=== PATIENT | female | born 1990 | race Two or more races ===

== ENCOUNTER 2017-01-21 19:29 | Emergency (ER) | payer MEDICAID ==
[~2017-01-21] VITALS: Ht 157.5 cm; Wt 77.1 kg
[2017-01-21 20:38] LABS: Urine Bilirubin Negative (Negative); Urine Blood Negative /uL (Negative); Urine Color Yellow (Yellow); Urine Glucose Normal (Normal); Urine Ketone Negative (Negative); Urine Mucus FEW (None Seen); Urine Nitrite Negative (Negative); Urine RBC 1 /hpf (0 - 4); Urine Squamous Epithelial Cell MOD /hpf (<5); Urine Urobilinogen Normal (Negative); Urine pH 5.5 (5.0-8.0)
[2017-01-21 20:43] LABS: Basophils # (auto) 0 uL; Basophils % (auto) 0.4 % (0.0-2.0); Eosinophils # (auto) 0.1 uL; Eosinophils % (auto) 1.3 % (0.0-7.0); Hematocrit 37.8 % (36.0-46.0); Hemoglobin 12.8 g/dL (12.2-16.2); Lymphocytes % (auto) 47.9 % (10.0-50.0); Mean Corpuscular Hemoglobin 31.7 pg (28.0-32.0); Mean Corpuscular Hgb Conc. 33.7 g/dL (32.0-36.0); Mean Platelet Volume 8.2 fL (7.4-10.4); Monocytes # (auto) 0.4 uL; Monocytes % (auto) 6.3 % (0.0-12.0); Neutrophils # (auto) 2.7 uL; Neutrophils % (auto) 44.1 % (37.0-80.0); Platelet Count (auto) 402 10^3/uL (140-450); Red Cell Distribution Width 13.9 % (11.6-16.0); White Blood Cell 6.2 10^3/uL (4.4-10.8)
[2017-01-21 21:12] LABS: Potassium 3.6 mmol/L (3.5-5.1)
[2017-01-21 21:15] LABS: Bilirubin, Total 0.2 mg/dL (0.2-1.0); Total Protein 8.2 g/dL (6.4-8.2)
[2017-01-22 00:36] VITALS: BP 127/87
== END 2017-01-22 00:45 | disposition home or self-care (01) ==
LOC: ER 19:34
DX: N93.8 Other specified abnormal uterine and vaginal bleeding (principal); Z87.891 Personal history of nicotine dependence; Z32.02 Encounter for pregnancy test, result negative
CPT/HCPCS: 36415; 80053; 81001; 81025; 84702; 85025

== ENCOUNTER 2017-10-12 10:19 | Emergency (ER) | payer SELFPAY ==
[~2017-10-12] VITALS: Ht 157.5 cm; Wt 72.6 kg
[2017-10-12 10:59] LABS: Basophils # (auto) 0 uL; Basophils % (auto) 0.8 % (0.0-2.0); Eosinophils # (auto) 0 uL; Eosinophils % (auto) 0.3 % (0.0-7.0); Hematocrit 37.1 % (36.0-46.0); Hemoglobin 12.3 g/dL (12.2-16.2); Lymphocytes # (auto) 2.6 uL; Mean Corpuscular Hemoglobin 30.6 pg (28.0-32.0); Mean Corpuscular Hgb Conc. 33.2 g/dL (32.0-36.0); Mean Corpuscular Volume 92.2 fL (80.0-100.0); Monocytes # (auto) 0.3 uL; Monocytes % (auto) 7.7 % (0.0-12.0); Neutrophils # (auto) 1.1 uL; Neutrophils % (auto) 27.7 % (37.0-80.0); Nucleated Red Blood Cells % 0.1 %; Platelet Count (auto) 300 10^3/uL (140-450); Red Blood Cells 4.03 10^6/uL (4.0-5.20)
[2017-10-12 11:22] LABS: Lymphocytes % (auto) 63.5 % (10.0-50.0)
[2017-10-12 11:40] LABS: BUN/Creatinine Ratio 14.5; Calcium 8.7 mg/dL (8.5-10.1); Potassium 3.9 mmol/L (3.5-5.1)
[2017-10-12 11:44] LABS: Bilirubin, Total 0.2 mg/dL (0.2-1.0)
[2017-10-12 14:43] LABS: Urine Bacteria NONE SEEN /hpf (None Seen); Urine Blood Negative /uL (Negative); Urine Mucus FEW (None Seen); Urine WBC 1 /hpf (0 - 5)
[2017-10-12 14:45] VITALS: BP 94/59
[2017-10-12 15:06] LABS: Amphetamine Screen, Urine NEGATIVE (NEGATIVE); Barbiturate Scree,Urine NEGATIVE (NEGATIVE); Benzodiazephine Screen, Urine NEGATIVE (NEGATIVE); Cannabinoid Screen, Urine NEGATIVE (NEGATIVE); Cocaine Screen, Urine NEGATIVE (NEGATIVE); Opiate Scree,Urine NEGATIVE (NEGATIVE); Phencyclidine Screen, Urine NEGATIVE (NEGATIVE)
== END 2017-10-12 15:15 | disposition home or self-care (01) ==
LOC: ER 10:19
DX: F41.9 Anxiety disorder, unspecified (principal); R10.9 Unspecified abdominal pain
CPT/HCPCS: 36415; 80053; 80307; 81001; 81025; 82150; 83690; 84702; 85025

== ENCOUNTER 2018-11-15 21:34 | Emergency (ER) | payer MEDICAID ==
[~2018-11-15] VITALS: Ht 165.1 cm; Wt 99.8 kg
[2018-11-15] MEDS ORDERED: SODIUM CHLORIDE 0.9% 1,000 ML IVB ONE (22:33)
[2018-11-15 23:12] LABS: Basophils # (auto) 0 uL; Basophils % (auto) 0.9 % (0.0-2.0); Eosinophils # (auto) 0 uL; Hematocrit 39.8 % (36.0-46.0); Lymphocytes # (auto) 2.2 uL; Mean Corpuscular Hemoglobin 31.3 pg (28.0-32.0); Mean Corpuscular Hgb Conc. 32.7 g/dL (32.0-36.0); Mean Corpuscular Volume 95.6 fL (80.0-100.0); Monocytes # (auto) 0.2 uL; Monocytes % (auto) 6.4 % (0.0-12.0); Neutrophils # (auto) 1.3 uL; Neutrophils % (auto) 33.7 % (37.0-80.0); Platelet Count (auto) 290 10^3/uL (140-450); Red Blood Cells 4.16 10^6/uL (4.0-5.20); Red Cell Distribution Width 16.1 % (11.8-14.3); White Blood Cell 3.7 10^3/uL (4.4-10.8)
[2018-11-15] MEDS ORDERED: MULTIPLE VITAMIN 10 ML, MAGNESIUM SULF SDV 50% 8 MEQ in SODIUM CHLORIDE 0.9% 1,000 ML IV ONE (23:15)
[2018-11-15 23:30] VITALS: BP 137/72
[2018-11-15 23:33] LABS: Albumin 3.6 g/dL (3.4-5.0); BUN/Creatinine Ratio 10.6; Calcium 7.8 mg/dL (8.5-10.1); Potassium 3.7 mmol/L (3.5-5.1)
[2018-11-15 23:38] LABS: Bilirubin, Total 0.1 mg/dL (0.2-1.0)
== END 2018-11-16 00:47 | disposition home or self-care (01) ==
LOC: EDBD 21:34 → ER 21:44 → MERGE 21:44 → ER 11-16 00:47
DX: F10.229 Alcohol dependence with intoxication, unspecified (principal); F41.9 Anxiety disorder, unspecified; F17.210 Nicotine dependence, cigarettes, uncomplicated; Y90.9 Presence of alcohol in blood, level not specified
CPT/HCPCS: 36415; 80053; 80320; 85025

== ENCOUNTER 2020-09-10 10:05 | Emergency (ER) | payer MEDICAID ==
[~2020-09-10] VITALS: Ht 162.6 cm; Wt 85.7 kg
[~2020-09-10 10:05] MED LIST: LEVO500T21 PO
[2020-09-10 10:35] VITALS: BP 124/69
[2020-09-10] MEDS ORDERED: KETOROLAC TROMETH 60MG/2ML VIAL IM ONE (11:30)
[2020-09-10] MEDS ORDERED: methylPREDNISolone SOD SUCC 125 MG/2 ML VL IM ONE (11:30)
== END 2020-09-10 11:49 | disposition home or self-care (01) ==
LOC: ER 10:05
DX: S83.91XA Sprain of unspecified site of right knee, initial encounter (principal); Z87.891 Personal history of nicotine dependence; X58.XXXA Exposure to other specified factors, initial encounter; Y93.89 Activity, other specified; Y92.89 Other specified places as the place of occurrence of the external cause; Y99.8 Other external cause status
CPT/HCPCS: 73562; 96372; 99284; J1885; J2930

== ENCOUNTER 2021-06-30 13:28 | Emergency (ER) | payer MEDICAID ==
[~2021-06-30] VITALS: Ht 160 cm; Wt 84.9 kg
[~2021-06-30 13:28] MED LIST changes: -LEVO500T21 PO; +LEVO500T31 PO
[2021-06-30 13:35] VITALS: BP 128/68
== END 2021-06-30 18:54 | disposition left against medical advice (07) ==
LOC: ER 13:28 → EDBD 13:28 → ER 18:54
DX: R51.9 Headache, unspecified (principal); Z53.21 Procedure and treatment not carried out due to patient leaving prior to being seen by health care provider; Y04.2XXA Assault by strike against or bumped into by another person, initial encounter; Y93.89 Activity, other specified; Y92.89 Other specified places as the place of occurrence of the external cause; Y99.8 Other external cause status

== ENCOUNTER 2022-01-26 17:20 | Observation (INO) | payer MEDICAID | END 2022-01-26 20:00 | disposition home or self-care (01) | LOC: LDRP 17:20 | PROVIDERS: ADMIT Obstetrics & Gynecology Obstetrics; ATTEND Obstetrics & Gynecology Obstetrics | DX: O26.892 Other specified pregnancy related conditions, second trimester (principal); R10.9 Unspecified abdominal pain; W18.2XXA Fall in (into) shower or empty bathtub, initial encounter; Y93.E1 Activity, personal bathing and showering; Y92.89 Other specified places as the place of occurrence of the external cause; Z3A.27 27 weeks gestation of pregnancy; Z87.891 Personal history of nicotine dependence | CPT/HCPCS: 59025; 76815; 81002; G0378 ==

== ENCOUNTER 2022-10-01 12:50 | Emergency (ER) | payer MEDICAID ==
[~2022-10-01] VITALS: Ht 167.6 cm; Wt 87.0 kg
[2022-10-01 12:50] VITALS: BP 108/73
[2022-10-01] MEDS ORDERED: SODIUM CHLORIDE 0.9% 1,000 ML IVB ONE (13:15)
[2022-10-01 13:37] LABS: Basophils # (auto) 0 10 ^3/uL (0-0.2); Basophils % (auto) 1.1 % (0.0-2.0); Eosinophils # (auto) 0.1 10 ^3/uL (0-0.8); Eosinophils % (auto) 1.4 % (0.0-7.0); Hematocrit 40.8 % (36.0-46.0); Hemoglobin 13.9 g/dL (12.2-16.2); Lymphocytes # (auto) 2.6 10 ^3/uL (0.4-5.4); Mean Corpuscular Hemoglobin 33.3 pg (28.0-32.0); Monocytes # (auto) 0.3 10 ^3/uL (0-1.3); Monocytes % (auto) 7.3 % (0.0-12.0); Neutrophils # (auto) 1.1 10 ^3/uL (1.6-8.6); Neutrophils % (auto) 26.8 % (37.0-80.0); Nucleated Red Blood Cells % 0.2 %; Red Blood Cells 4.17 10^6/uL (4.0-5.20); Red Cell Distribution Width 14.8 % (11.8-14.3); White Blood Cell 4.2 10^3/uL (4.4-10.8)
[2022-10-01 13:41] LABS: Lymphocytes % (auto) 63.4 % (10.0-50.0)
[2022-10-01 13:48] LABS: Anion Gap 9 (5-15); Blood Urea Nitrogen 5 mg/dL (7-18); Calcium 8.5 mg/dL (8.5-10.1); Carbon Dioxide 25 mmol/L (21-32); Chloride 109 mmol/L (98-107); Glucose 98 mg/dL (74-106); Potassium 4.1 mmol/L (3.5-5.1); Sodium 143 mmol/L (136-145)
[2022-10-01 13:49] LABS: Salicylate < 1.7 mg/dL (2.8-20.0)
[2022-10-01 13:54] LABS: Alanine Aminotransferase 43 U/L (13-56); Alkaline Phosphatase 78 U/L (45-117); Aspartate Aminotransferase 27 U/L (15-37); BUN/Creatinine Ratio 9.6; Bilirubin, Total < 0.1 mg/dL (0.2-1.0); GFR African American 174 mL/min; GFR Non-African American 143 mL/min; Total Protein 8.4 g/dL (6.4-8.2)
[2022-10-01 13:55] LABS: Acetaminophen < 2.0 ug/mL (10-30)
== END 2022-10-01 14:00 | disposition left against medical advice (07) ==
LOC: ER 12:50 → EDBD 12:50 → ER 14:00
DX: F10.129 Alcohol abuse with intoxication, unspecified (principal); F32.9 Major depressive disorder, single episode, unspecified; Z87.891 Personal history of nicotine dependence; Z79.2 Long term (current) use of antibiotics; Y90.8 Blood alcohol level of 240 mg/100 ml or more
CPT/HCPCS: 36415; 80053; 80320; 80329; 85025

== ENCOUNTER 2022-12-31 18:45 | Emergency (ER) | payer MEDICAID ==
[~2022-12-31] VITALS: Ht 167.6 cm; Wt 63.6 kg
[2022-12-31 23:30] VITALS: BP 98/60
== END 2023-01-01 01:30 | disposition home or self-care (01) ==
LOC: ER 18:45 → EDBD 18:45 → ER 01-01 01:30
DX: S40.022A Contusion of left upper arm, initial encounter (principal); S70.11XA Contusion of right thigh, initial encounter; F10.129 Alcohol abuse with intoxication, unspecified; F41.9 Anxiety disorder, unspecified; F32.9 Major depressive disorder, single episode, unspecified; Z87.891 Personal history of nicotine dependence; Y90.9 Presence of alcohol in blood, level not specified; X58.XXXA Exposure to other specified factors, initial encounter; Y93.89 Activity, other specified; Y92.89 Other specified places as the place of occurrence of the external cause; Y99.8 Other external cause status
CPT/HCPCS: 71045

== ENCOUNTER 2023-02-28 09:45 | Emergency (ER) | payer MEDICAID ==
[~2023-02-28] VITALS: Ht 160 cm; Wt 73.9 kg
[2023-02-28 10:41] VITALS: BP 100/60
[2023-02-28] MEDS ORDERED: diphenhdrAMINE HCL 50 MG/1 ML VL IV ONE (11:15)
[2023-02-28] MEDS ORDERED: DexAMETHasone SOD PHOS 10MG/1ML VIAL INJ IM ONE (11:15)
[2023-02-28] MEDS ORDERED: FAMOTIDINE 20 MG TAB PO ONE (11:15)
[2023-02-28] MEDS ORDERED: HYDR-3682 PO (12:22)
[2023-02-28] MEDS ORDERED: METH4PAK PO (12:22)
[2023-02-28] MEDS ORDERED: LORA-622 PO (12:23)
== END 2023-02-28 12:23 | disposition home or self-care (01) ==
LOC: ER 09:45
DX: T78.40XA Allergy, unspecified, initial encounter (principal); F41.9 Anxiety disorder, unspecified; F12.90 Cannabis use, unspecified, uncomplicated; F32.9 Major depressive disorder, single episode, unspecified; Z79.899 Other long term (current) drug therapy; Z98.890 Other specified postprocedural states; Z87.891 Personal history of nicotine dependence; X58.XXXA Exposure to other specified factors, initial encounter
CPT/HCPCS: 96372; 96374; 99284; J1100; J1200

== ENCOUNTER 2023-08-28 12:26 | Emergency (ER) | payer MEDICAID ==
[~2023-08-28] VITALS: Ht 160 cm; Wt 63.8 kg
[~2023-08-28 12:26] MED LIST changes: +HYDR-3682 PO; +LORA-622 PO; +METH4PAK PO
[2023-08-28 14:31] VITALS: BP 120/85; RESP 18; TEMP 98.3; O2SAT 97
[2023-08-28] MEDS ORDERED: PROM1SOL4 PO (16:00)
[2023-08-28] MEDS ORDERED: IBUP-1454 PO (16:00)
[2023-08-28] MEDS ORDERED: AZIT500T66 PO (16:00)
[2023-08-28 16:02] VITALS: PULSE 98
== END 2023-08-28 16:03 | disposition home or self-care (01) ==
LOC: ER 12:26
DX: J20.9 Acute bronchitis, unspecified (principal); J03.90 Acute tonsillitis, unspecified; F12.10 Cannabis abuse, uncomplicated; Z87.891 Personal history of nicotine dependence
CPT/HCPCS: 71046